=== PATIENT | female | born 1965 | race Hispanic/Latino ===

== ENCOUNTER 2017-11-29 19:58 | Emergency (ER) | payer SELFPAY ==
[2017-11-29] MEDS ORDERED: ASPIRIN PO ONE (20:14)
[2017-11-29 20:51] LABS: Basophils # (Auto) 0.1 K/mm3 (0.0-0.1); Basophils % (Auto) 0.6 % (0.0-1.8); Eosinophils # (Auto) 0.2 K/mm3 (0.0-0.4); Eosinophils % (Auto) 1.6 % (0.0-4.3); Hematocrit 42.9 % (30.3-42.9); Hemoglobin 14.4 gm/dl (10.1-14.3); Lymphocytes # (Auto) 2.2 K/mm3 (1.2-5.4); Lymphocytes % (Auto) 21.1 % (13.4-35.0); Mean Corpuscular HGB Conc 34 % (30-34); Mean Corpuscular Hemoglobin 28 pg (28-32); Mean Corpuscular Volume 84 fl (79-97); Monocytes # (Auto) 0.7 K/mm3 (0.0-0.8); Monocytes % (Auto) 6.7 % (0.0-7.3); Platelet Count 250 K/mm3 (140-440); Red Cell Distribution Width 14.4 % (13.2-15.2)
--- NOTE | 2017-11-29 21:02 | Emergency Department Report ---
ED General Adult HPI - General Chief complaint: Dizziness Stated complaint: DIZZY/HR 239 Time Seen by Provider: 11/29/17 20:50 Source: patient Mode of arrival: Wheelchair Limitations: No Limitations - History of Present Illness Initial comments: Patient is 52 years old female history of hypertension and depression. Presented to the ER for evaluation of dizziness and tachycardia. Patient told me that she reported to work this evening and she had some stress at work and she got upset and this when she starts having the dizziness and the tachycardia. Patient denied any chest pain or shortness of breath at that time patient stated that her symptoms completely resolved. Patient stated that she had a history of SVT before. She also stated that she is out of her atenolol and Lasix as she takes for blood pressure. Patient also stated that she is dealing with a lot of stress at home but denied any suicidal ideation or homicidal ideation. No visual or auditory hallucination. -: Sudden Consistency: now resolved - Related Data Allergies Allergy/AdvReac Type Severity Reaction Status Date / Time No Known Allergies Allergy Verified 11/29/17 20:04 ED Review of Systems ROS: Stated complaint: DIZZY/HR 239 Other details as noted in HPI Comment: All other systems reviewed and negative Constitutional: denies: chills, fever Respiratory: denies: cough, orthopnea, shortness of breath, SOB with exertion, SOB at rest, stridor Cardiovascular: palpitations. denies: chest pain, dyspnea on exertion, orthopnea, paroxysmal nocturnal dyspnea Gastrointestinal: denies: abdominal pain, nausea, vomiting, diarrhea, constipation, hematemesis, melena, hematochezia Skin: denies: rash, lesions, change in color Neurological: denies: headache, weakness, numbness, paresthesias, confusion Psychiatric: depression. denies: anxiety, auditory hallucinations, visual hallucinations, homicidal thoughts, suicidal thoughts ED Past Medical Hx - Past Medical History Hx Psychiatric Treatment: Yes Additional medical history: morbid obesity, depression - Social History Smoking Status: Never Smoker Substance Use Type: None ED Physical Exam - General Limitations: No Limitations General appearance: alert, in no apparent distress, anxious - Head Head exam: Present: atraumatic, normocephalic, normal inspection - Eye Eye exam: Present: normal appearance, PERRL - ENT ENT exam: Present: normal exam, normal orophraynx, mucous membranes moist - Neck Neck exam: Present: normal inspection, full ROM. Absent: tenderness, meningismus, lymphadenopathy, thyromegaly - Respiratory Respiratory exam: Present: normal lung sounds bilaterally. Absent: respiratory distress, wheezes, rales, rhonchi, stridor, chest wall tenderness, accessory muscle use, decreased breath sounds, prolonged expiratory - Cardiovascular Cardiovascular Exam: Present: regular rate, tachycardia, normal heart sounds - GI/Abdominal GI/Abdominal exam: Present: soft, normal bowel sounds. Absent: distended, tenderness, guarding, rebound, rigid, organomegaly, mass, bruit, pulsatile mass , hernia - Extremities Exam Extremities exam: Present: normal inspection, full ROM, normal capillary refill. Absent: tenderness, pedal edema, joint swelling, calf tenderness - Back Exam Back exam: Present: normal inspection, full ROM. Absent: tenderness, CVA tenderness (R), CVA tenderness (L), muscle spasm - Neurological Exam Neurological exam: Present: alert, oriented X3, CN II-XII intact, normal gait, reflexes normal. Absent: abnormal gait, motor sensory deficit - Psychiatric Psychiatric exam: Present: depressed, anxious. Absent: agitated, flat affect, manic, homicidal ideation, suicidal ideation - Skin Skin exam: Present: warm, intact, normal color ED Course Vital Signs 11/29/17 20:05 Temperature 98.4 F Pulse Rate 112 H Respiratory 18 Rate Blood Pressure 176/95 O2 Sat by Pulse 93 Oximetry - Reevaluation(s) Reevaluation #1: 11/29/17 21:45 Patient stated that she is feeling much better she think back to normal. No chest pain, no shortness of breath no palpitations or dizziness. I will refill are atenolol and Lasix and I strongly advised to follow-up with her primary care physician. Patient agreed with the plan. ED Medical Decision Making - Lab Data Result diagrams: 11/29/17 20:43 11/29/17 20:43 - EKG Data -: EKG Interpreted by Me Rate: tachycardia - EKG Data Interpretation: no acute changes Critical care attestation.: If time is entered above; I have spent that time in minutes in the direct care of this critically ill patient, excluding procedure time. ED Disposition Clinical Impression: Dizziness, Tachycardia, Stress reaction Disposition: DC-01 TO HOME OR SELFCARE Is pt being admited?: No Condition: Stable Instructions: Dizziness (ED)
[2017-11-29] MEDS ORDERED: TENORMIN PO ONE (21:04)
[2017-11-29 21:13] LABS: BUN/Creatinine Ratio 20; Blood Urea Nitrogen 12 mg/dL (7-17); Calcium 9.6 mg/dL (8.4-10.2); Hemolysis Index 2
[2017-11-29 22:25] VITALS: BP 170/80
== END 2017-11-29 22:27 | disposition home or self-care (01) ==
LOC: ED 19:58 → EEVIPCON 19:58 → ED 22:27
DX: R42 Dizziness and giddiness (principal); R00.0 Tachycardia, unspecified; F43.9 Reaction to severe stress, unspecified; I10 Essential (primary) hypertension; F32.9 Major depressive disorder, single episode, unspecified; E66.01 Morbid (severe) obesity due to excess calories; Z68.43 Body mass index [BMI] 50.0-59.9, adult
CPT/HCPCS: 36415; 80048; 84484; 85025; 93005; 93010; 99284

== ENCOUNTER 2018-03-21 20:49 | Emergency (ER) | payer SELFPAY ==
[2018-03-21] MEDS ORDERED: ASPIRIN PO ONE (21:01)
[2018-03-21 21:42] LABS: Basophils # (Auto) 0.1 K/mm3 (0.0-0.1); Basophils % (Auto) 0.7 % (0.0-1.8); Eosinophils # (Auto) 0.1 K/mm3 (0.0-0.4); Eosinophils % (Auto) 1.6 % (0.0-4.3); Hematocrit 41.6 % (30.3-42.9); Hemoglobin 13.4 gm/dl (10.1-14.3); Lymphocytes # (Auto) 3.1 K/mm3 (1.2-5.4); Lymphocytes % (Auto) 34.3 % (13.4-35.0); Mean Corpuscular HGB Conc 32 % (30-34); Mean Corpuscular Hemoglobin 28 pg (28-32); Mean Corpuscular Volume 86 fl (79-97); Monocytes # (Auto) 0.8 K/mm3 (0.0-0.8); Monocytes % (Auto) 8.4 % (0.0-7.3); Platelet Count 255 K/mm3 (140-440); Red Blood Count 4.86 M/mm3 (3.65-5.03); Red Cell Distribution Width 14.7 % (13.2-15.2)
[2018-03-21 21:51] LABS: BUN/Creatinine Ratio 16; Blood Urea Nitrogen 11 mg/dL (7-17); Calcium 8.6 mg/dL (8.4-10.2); Hemolysis Index 24
--- NOTE | 2018-03-21 22:25 | Emergency Department Report ---
HPI - General Chief Complaint: Arrhythmia/Palpitations Time Seen by Provider: 03/21/18 22:02 - HPI HPI: The patient's 52-year-old female with a significant history of SVT and hypertension, who presents for evaluation of dyspnea and chest pain. The patient reports a severe constant episode of dyspnea and chest discomfort, pounding in quality, 30 minutes prior to arrival to the ED. She states that she was rushing and engaging in significant physical exertion in attempt to promptly arrive at work when her symptoms began. Her dyspnea and chest pain were exacerbated with ambulation. She believes that her symptoms were secondary to a panic attack. She states that her shorts of breath and chest pain are currently resolved. The patient denies fever, trauma to the chest, syncope, hemoptysis, unilateral leg swelling, recent immobilization, history of DVT or PE, hx of recent cancer. ED Past Medical Hx - Past Medical History Previous Medical History?: Yes Hx Psychiatric Treatment: Yes Additional medical history: morbid obesity, depression - Surgical History Past Surgical History?: No - Social History Smoking Status: Never Smoker Substance Use Type: None - Medications Home Medications: Home Medications Medication Instructions Recorded Confirmed Last Taken Type Atenolol [Tenormin] 100 mg PO DAILY #30 tab 03/21/18 Unknown Rx Furosemide [Lasix TAB] 40 mg PO QDAY #30 tablet 03/21/18 Unknown Rx ED Review of Systems ROS: Stated complaint: CHEST PAIN Other details as noted in HPI Constitutional: denies: fever ENT: denies: throat or neck pain Respiratory: denies: cough reports shortness of breath Cardiovascular: reports: chest pain Endocrine: denies unexplained weight loss or gain Gastrointestinal: denies: abdominal pain, nausea Genitourinary: denies: dysuria Musculoskeletal: denies: leg swelling Skin: denies: rash Neurological: denies: headache Hematological/Lymphatic: denies: easy bleeding or easy bruising Psych: denies sadness or hopelessness Physical Exam - Physical Exam Vital Signs: Vital Signs 03/21/18 03/21/18 03/21/18 20:58 20:59 21:08 Temperature 98.7 F 98.7 F Pulse Rate 210 H 82 Respiratory 2 L 16 21 Rate Blood Pressure 94/64 94/64 O2 Sat by Pulse 96 Oximetry 03/21/18 21:30 Temperature Pulse Rate 80 Respiratory 16 Rate Blood Pressure 128/86 O2 Sat by Pulse Oximetry Physical Exam: General: well-nourished, well-developed, no acute distress Head: Normocephalic, atraumatic Eyes: normal sclera ENT: Mucous membranes are pale and dry Neck: No neck stiffness, no cervical adenopathy Respiratory: Breath sounds equal bilaterally, no wheezing, rales, or rhonchi Cardio: S1 and S2 present, no murmurs, rubs, gallops, capillary refill is delayed Abdomen: Normoactive bowel sounds, soft abdomen, no tenderness Chest WALL/Back: No tenderness to palpation of the chest wall, no CVA tenderness with percussion Musc: 1+ pitting edema of distal bilateral lower extremities Skin: No rash Neuro: no facial drooping, normal speech Psych: Normal affect ED Course Vital Signs 03/21/18 03/21/18 03/21/18 20:58 20:59 21:08 Temperature 98.7 F 98.7 F Pulse Rate 210 H 82 Respiratory 2 L 16 21 Rate Blood Pressure 94/64 94/64 O2 Sat by Pulse 96 Oximetry 03/21/18 21:30 Temperature Pulse Rate 80 Respiratory 16 Rate Blood Pressure 128/86 O2 Sat by Pulse Oximetry ED Medical Decision Making - Lab Data Result diagrams: 03/21/18 21:04 03/21/18 21:04 - Medical Decision Making The patient was seen and examined by myself. The patient is placed on a color television console monitor and continuous pulse ox. On initial evaluation, the patient was found to be in no distress. EKG was negative for findings suggestive of acute cardiac infarct. Labs and imaging are obtained. Chest x-ray is negative for pneumothorax, focal consolidation, pulmonary vascular congestion, pleural effusion, or other obvious acute cardiopulmonary disease process. Lab results were non-concerning including levels of troponin, WBC, hemoglobin, hematocrit, electrolytes, renal function. The patient was reevaluated and reported that their symptoms were markedly improved. As the patient has a RYAN risk score less than 2, and a well's score less than 2, the patient is at low risk of ACS or pulmonary emboli etiology of their symptoms. The patient is stable for discharge with outpatient follow-up. The patient is given follow-up and return instructions. The patient expressed understanding and agreed with the plan. The patient is discharged in stable condition. Critical care attestation.: If time is entered above; I have spent that time in minutes in the direct care of this critically ill patient, excluding procedure time. ED Disposition Clinical Impression: Dyspnea on exertion, Acute chest pain Disposition: DC-01 TO HOME OR SELFCARE Is pt being admited?: No Does the pt Need Aspirin: No Condition: Stable Instructions: Chest Pain (ED), Dyspnea (ED), Heart Failure (ED), Anxiety (ED) Referrals: EITAN CALVO MD [Primary Care Provider] - 3-5 Days Time of Disposition: 23:10
[2018-03-21 23:20] VITALS: BP 116/65
--- NOTE | 2018-03-21 23:30 | XRay Report ---
FINAL REPORT PROCEDURE: XR CHEST 1V AP TECHNIQUE: Chest radiograph anteroposterior view. CPT 75789 HISTORY: chest pain COMPARISON: No prior studies are available for comparison. FINDINGS: Heart: Magnified due to projection appears to be normal size.. Mediastinum/Vessels: Normal. Lungs/Pleural space: Normal. Bony thorax: No acute osseous abnormality. Life support devices: None. IMPRESSION: No acute cardiopulmonary abnormality.
== END 2018-03-21 23:24 | disposition home or self-care (01) ==
LOC: ED 20:49
DX: R06.00 Dyspnea, unspecified (principal); R07.9 Chest pain, unspecified; F32.9 Major depressive disorder, single episode, unspecified; E66.01 Morbid (severe) obesity due to excess calories
CPT/HCPCS: 36415; 71045; 80048; 84484; 85025; 93005; 93010